=== PATIENT | male | born 1950 | race Caucasian/White ===

== ENCOUNTER 2017-06-15 09:03 | Emergency (ER) | payer BC ==
[~2017-06-15] VITALS: Ht 180.3 cm; Wt 79.4 kg
[~2017-06-15 09:03] MED LIST: KEFLEX 500MG.500 MG PO; NOMEDS XX; NORCO 325 MG-101 TAB PO
--- OUTSIDE RECORDS SUMMARY | 2017-06-15 09:07 | External Medical Summary Rpt | CCD ---
Demographics Preferred Language Setswana Marital Status Unknown Mosque Affiliation Unknown Race Unknown Ethnic Group Unknown Author Author , LEILANI Organization LEILANI Address Unknown Phone [email or web address] Immunization Name Date Rout CVX Reac Dose Comm Prov Is Faci e tion ent ider Refu lity Give sed n Td 03-0 9 999 Hist H149 No H149 (nacho 7-19 [facility] lt), 97 al Info adso rmat rbed ion - Sour ce Unsp ecif ied
--- OUTSIDE RECORDS SUMMARY | 2017-06-15 09:07 | External Medical Summary Rpt | CCD ---
Author Author , LEILANI DUKE Address Unknown Phone [email or web address] Care Team Providers Care Neurology Nurse Name Role Phone HITESH CARTY MD, Unavailable Unavailable HITESH CARTY MD Purpose Continuity of Care Document - 12-05-2012 through 2016 Problems Code Diagnosis DOS Provider Status 813.41 813.41 12-05-2012 [facility] OSED E849.0 E849.0 12-05-2012 U[place] ACCIDENT IN [place] E881.0 E881.0 FALL 12-05-2012 [facility] FROM [facility] S20.212D CONTUSION OF LEFT FRONT WALL OF THORAX, SUBSEQUENT ENCOUNTER S61.219A LACERATION W/O FB OF UNSP FINGER W/O DAMAGE TO NAIL, INIT Allergies, Adverse Reactions, Alerts Type Drug Allergy Adverse Reaction to Substance Substance Reaction Severity Benzocaine PASSED OUT Mild Medications Na ND Rx Da Fi Fi Am Da Di Ph RX Ph St me C No te ll ll ou ys ag ar # ys at rm s nt no ma ic us Or Da si cy ia de te s n re d HY [address] 40 -0 OM 91 4- Lo OR 31 20 ng PH 23 13 er ON 0 E Ac 2 ti MG ve /M L CA RP UJ CT Vital Signs 12-05-2012 18:20 Name Value Interpretat Reference Comment ion Range Body 98.6 [degF] Temperature BP 67 mm[Hg] Diastolic BP Systolic 111 mm[Hg] Heart 67 /min Rate/Pulse O2% 98 % Respiratory 20 /min Rate 12-05-2012 18:19 Name Value Interpretat Reference Comment ion Range Body 98.6 [degF] Temperature 12-05-2012 16:31 Name Value Interpretat Reference Comment ion Range BP 81 mm[Hg] Diastolic BP Systolic 132 mm[Hg] Heart 74 /min Rate/Pulse O2% 99 % Respiratory 18 /min Rate Encounters Encounter Start End Date Code Location Performer Type Date Emergency JAYSON CARTY (ER) 3 16:09 3 18:19 [facility]
--- OUTSIDE RECORDS SUMMARY | 2017-06-15 09:07 | External Medical Summary Rpt | CCD ---
Author Author , LEILANI DUKE Address Unknown Phone [email or web address] Care Team Providers Care Validation Architect Name Role Phone HITESH CARTY MD, Unavailable Unavailable HITESH CARTY MD Purpose Continuity of Care Document - 12-05-2012 through 2016 Problems Code Diagnosis DOS Provider Status 813.41 813.41 12-05-2012 U[place] OSED E849.0 E849.0 12-05-2012 U[place] ACCIDENT IN [facility] E881.0 E881.0 FALL 12-05-2012 U[place]ano FROM [facility] S20.212D CONTUSION OF LEFT FRONT WALL [...] JAYSON CARTY (ER) 3 16:09 3 18:19 [facility]
--- OUTSIDE RECORDS SUMMARY | 2017-06-15 09:07 | External Medical Summary Rpt ---
Author Author LEILANI Schmitt, [employer] Organization [employer] Address Unknown Phone Unavailable
--- OUTSIDE RECORDS SUMMARY | 2017-06-15 09:07 | External Medical Summary Rpt | CCD ---
Demographics Preferred Language Tajik Marital Status Unknown Mu-Ism Affiliation Unknown Race Unknown Ethnic Group Unknown Author Author , LEILANI Organization LEILANI Address Unknown Phone [email or web address] Immunization Name Date Rout CVX Reac Dose Comm Prov Is Faci e tion ent ider Refu lity Give sed n Td 03-0 9 999 Hist H149 No H149 (nacho 7-19 [facility] lt), 97 al Info adso rmat rbed ion - Sour ce Unsp ecif ied
--- NOTE | 2017-06-15 09:22 | Urgent Treatment Center Report ---
History of Present Issue Date/Time Seen by Provider 06/15/17916 Visit Reason Pt arrived:Walked Presenting Problem:PT C/O CHEST CONGESTION, PRODUCTIVE COUGH WITH GREEN MUCOUS, AND SOB. Location if Accident: Onset of symptoms date/time:/ or onset unknown for:MEDICAL HX UNKNOWN Have you (or family members/close friends) recently traveled outside the [place]? N If Yes, where/when: Have you had exposure to infectious disease within the past month? TB? Other? Specify: Source patient, RN notes reviewed, family Exam Limitations no limitations Comment 66-year-old male presents for coughing up green sputum, and short of breathfor 1 week. Patient states symptoms are worsening. Patient reports heavy smoker. ALLERGIES Coded Allergies: benzocaine (Mild, 03/02/17) Home Medications Reported Medications No Home Medications (NO HOME MEDICATIONS) 1 EACH XX ONCE History Medical History General CAD? No Angina: No ID: No Hypertension? No Hyperlipidemia? No CHF? No DVT? No PE? No COPD? No Asthma? No Anemia? No GERD? No Gastric ulcers? No GI Bleed? No Hernia? No Thyroid Problems? No Hypothyroidism? No CVA? No Seizures? No Diabetes? No Renal Insuffiency? No UTI? No Stones? No BPH? No GB Disease: No Nephritic Syndrome? No Asplenia? No Hepatitis? No Sickle Cell Disease? No Arthritis? No Migraines? No Cataracts? No Glaucoma? No MRSA? No HIV? No TB? No Anxiety? No Depression? No Cancer? No More? No Immunization HX DT/Tetanus 1-4 YRS Surgical Hx Previous Surgery?Y LEFT ARM SURGERY Social History Smoking Hx Smoker: Current Every Day Smoker Tobacco: Yes Type Cigarettes Packs/day 2 1/2 - 3 Packs Alcohol Alcohol: No Review of Systems All Other Systems Reviewed and Negative Respiratory see HPI, cough, shortness of breath Physical Exam Vital Signs Vital Signs Date Time Temp Pulse Resp B/P Pulse O2 O2 Flow FiO2 Ox Delivery Rate 06/15 912 97.9 76 22 147/72 98 - WBC >12,000 or <4,000 or 10% bands? 2 or more SIRS Criteria Met? B/P:147/72 MAP:97 Creatinine >2.0? UA output<0.5ml/kg/hr for 2 hrs? Platelet count >100,000? Lactate >2.0mmol/1? INR >1.2 or PTT > than 60 sec? Evidence of Organ Dysfunction? Provider documented clinical suspician of infection? Sepsis Criteria Count: 1 Sepsis Risk: General Appearance normal appearance, no apparent distress Ear, Nose, Throat hearing grossly normal, normal ENT inspection, normal pharynx Neck normal inspection, supple, full range of motion Respiratory Status Yes: trachea midline, chest symmetrical, non tender chest. No: respiratory distress. Lung Sounds posterior: rhonchi. bilateral: wheezing. left: rhonchi. Cardiovascular normal exam, regular rate/rhythm Neurologic alert, normal exam, oriented x 3 Medical Decision Making LABS/Meds/Orders Pt receiving controlled substance in ED? No Results/Orders Current Medication Orders Sig/Nena Start time Last Medication Dose Route Stop Time Status Admin Dexamethasone Sodium 4 MG ONCE ONE 06/15 1000 AC Phosphate IM 06/15 1001 Orders Procedure Date/time Status CHEST(2 VIEWS-NOT PORTABLE) 06/15 0912 Active XRAY/CT/US XRAY/CT/US XRAY chest XR interpretation by reviewed by me (christine) Xray Results normal/NAD, no infiltrates Departure Departure Time of Disposition 0950 Disposition DC Home or Self Care(routine) Clinical Impression Primary Impression: Acute bronchitis Qualifiers: Bronchitis organism: other organism Qualified Code: J20.8 - Acute bronchitis due to other specified organisms Condition STABLE Referrals DUONG ACOSTA (Family) Patient Instructions Acute Bronchitis Additional Instructions PCP this week if no improvement Antibiotics as ordered Tylenol Motrin as needed for pain or fever Increase fluids Symptoms worsen or do not improve return or be seen in the ER Discharge Counseling Counseled pt/family regarding diagnosis, test results, medications/RX, home care, follow up needs Prescriptions Current Visit Scripts Azithromycin (Zithromax) 250 MG PO DAILY #6 TAB USE DIRECTED. at 0972
[2017-06-15] MEDS ORDERED: ZITHROMAX Z-PA250 M2 PO (09:51)
[2017-06-15 09:52] VITALS: BP 147/72
--- NOTE | 2017-06-15 11:12 | RADIOLOGY REPORT PS360 ---
CHEST(2 VIEWS-NOT PORTABLE) HISTORY: CHEST CONGESTION ORDERING PHYSICIAN: Igor Gomez PATIENT AGE: 66 years COMPARISON: 01/27/2016 FINDINGS: The cardiomediastinal silhouette and pulmonary vascularity are within normal limits. There is a parenchymal opacity in the anterior clear space inferiorly on the lateral view which may be due to an area of atelectasis or infiltrate. Or is overall some coarsening of the bronchovascular markings which may be seen with bronchitis. No lobar consolidation or effusion.. No acute bony abnormalities. IMPRESSION: 1. Coarsening of the bronchovascular markings consistent with bronchitis 2. Patchy infiltrate or atelectasis in the anterior clear space
== END 2017-06-15 09:53 | disposition home or self-care (01) ==
LOC: UTC 09:03
DX: J20.8 Acute bronchitis due to other specified organisms (principal); F17.210 Nicotine dependence, cigarettes, uncomplicated; Z88.9 Allergy status to unspecified drugs, medicaments and biological substances